=== PATIENT | female | born 1975 | race Caucasian/White ===

== ENCOUNTER 2021-10-08 07:09 | Emergency (ER) | payer SELFPAY ==
[~2021-10-08] VITALS: Ht 149.9 cm; Wt 56.0 kg
[2021-10-08 07:23] VITALS: BP 166/90
--- NOTE | 2021-10-08 07:30 | PHYS DOC ---
Past History Past Surgical History: No Surgical History Adult General Chief Complaint Chief Complaint: COUGH HPI HPI Patient is a 46-year-old female presenting for multiple symptoms. Main reason for presenting today is fact that she is unvaccinated against COVID-19 and has had fatigue with associated viral symptoms that started 3 days ago. She has been taking NyQuil without significant relief in symptoms. Nothing known makes better or worse. Timing of symptoms has been constant since onset. She denies any known sick contacts but is concerned given her unvaccinated status. Also presents requesting evaluation for a rash which she states is on her torso and upper extremities, denies any known exacerbating factors, allergens or other exposures. Admits she is currently being treated with amoxicillin for an infected dental carry, was supposed to follow-up with dentist this week but postponed due to fact that she was feeling poorly and wanted to rule out COVID- 19 infection prior to returning to their office. Admits to tobacco abuse, occasional alcohol abuse and denies all other illicit drug abuse Review of Systems Review of Systems Fourteen body systems of review of systems have been reviewed. See HPI for pertinent positives and negative responses, other espinosa all other systems are negative, non-pertinent or non-contributory Allergies Allergies Allergies Coded Allergies Type Severity Reaction Last Updated Verified No Known Drug Allergies 10/08/21 No Physical Exam Physical Exam Constitutional: Well developed, age-appropriate. Fidgety during exam, presentation consistent with methamphetamine intoxication HENT: Normocephalic, atraumatic, bilateral external ears normal, oropharynx dry, no oral exudates, nose normal. Poor dentition globally. Infected dental carry at tooth #3 Eyes: PERRLA, EOMI, conjunctiva normal, no discharge. Neck: Normal range of motion, no tenderness, supple, no stridor. Cardiovascular: Heart rate regular, sinus rhythm, no murmurs rubs or gallops Lungs & Thorax: Bilateral breath sounds clear to auscultation Abdomen: Bowel sounds normal, soft, no tenderness, no masses, no pulsatile masses. Nonsurgical abdomen, no peritoneal signs Skin: Warm, dry, no erythema, no rash. Back: No tenderness, no CVA tenderness. Extremities: No tenderness, no cyanosis, no clubbing, ROM intact, no edema. Neurologic: Alert and oriented X 3, grossly normal motor & sensory function, no focal deficits noted. Psychologic: Anxious affect and mood. Fidgeting throughout examination. Current Patient Data Vital Signs Vital Signs Date Time Temp Pulse Resp B/P (MAP) Pulse Ox O2 Delivery O2 Flow Rate FiO2 10/08/21 07:23 97.9 86 18 166/90 (115) 99 EKG EKG [] Radiology/Procedures Radiology/Procedures [] Heart Score C/O Chest Pain: No Risk Factors: Risk Factors: DM, Current or recent (<one month) smoker, HTN, HLP, family history of CAD, obesity. Risk Scores: Risk Factors: DM, Current or recent (<one month) smoker, HTN, HLP, family history of CAD, obesity. Course & Med Decision Making Course & Med Decision Making ABCs grossly unremarkable HPI and physical exam consistent with URI syndrome, likely self-limiting viral etiology. Cannot disclose COVID-19 in an unvaccinated individual. PCR obtained with appropriate self quarantine and supportive care precautions discussed Patient's reported rash unremarkable, advised antihistamine use such as cetirizine daily and to avoid any fragrances or new allergens. Close PCP follow-up advised Chito Disclaimer Chito Disclaimer This electronic medical record was generated, in whole or in part, using a voice recognition dictation system. Departure Departure: Impression: Primary Impression: Viral syndrome Additional Impression: Person under investigation for COVID-19 Disposition: HOME / SELF CARE / HOMELESS Condition: STABLE Referrals: [facility]CP[facility] (PCP) Additional Instructions: You were seen for fatigue, upper respiratory symptoms, and possible infection with COVID-19. Your physical exam was reassuring. We tested you for COVID-19 but this test does not come back for 1 to 2 days. In the meantime you need to quarantine yourself at home away from all other individuals, especially those who are elderly or have any other chronic health issues or an immunocompromised status. You should return to the ED if you develop worsening cough, shortness of breath, chest pain, or any other new or concerning symptoms. Alternate Tylen ol and ibuprofen as needed for body aches and pain. If your test does come back positive you need to quarantine yourself for 10 days until symptom-free. You should make sure to drink plenty of fluids and get plenty of rest. Problem Qualifiers KRISTIAN PETIT DO Oct 08, 2021 07:30
== END 2021-10-08 07:40 | disposition home or self-care (01) ==
LOC: ER 07:09
DX: B34.9 Viral infection, unspecified (principal); Z20.822 Contact with and (suspected) exposure to COVID-19
CPT/HCPCS: 99283; C9803; U0003